=== PATIENT | male | born 2000 | race Two or more races ===

== ENCOUNTER → 2020-03-22 | Emergency (ER) | payer SELFPAY ==
[2020-03-22 18:17] VITALS: BP 163/90
== END | disposition home or self-care (01) ==
LOC: ER 17:49
DX: S61.214A Laceration without foreign body of right ring finger without damage to nail, initial encounter (principal); S67.194A Crushing injury of right ring finger, initial encounter; X58.XXXA Exposure to other specified factors, initial encounter; Y93.89 Activity, other specified; Y92.89 Other specified places as the place of occurrence of the external cause; Y99.0 Civilian activity done for income or pay
CPT/HCPCS: 12001; 29130; 73130

== ENCOUNTER 2020-04-03 15:20 | Emergency (ER) | payer SELFPAY ==
[~2020-04-03] VITALS: Ht 175.3 cm; Wt 100.2 kg
[2020-04-03 15:44] VITALS: BP 136/86
== END 2020-04-03 16:29 | disposition home or self-care (01) ==
LOC: ER 15:20
DX: S61.214D Laceration without foreign body of right ring finger without damage to nail, subsequent encounter (principal); X58.XXXD Exposure to other specified factors, subsequent encounter